=== PATIENT | female | born 1955 | race Caucasian/White ===

== ENCOUNTER 2018-06-09 02:07 | Outpatient (RCR) | payer MEDICAID, SELFPAY ==
[2018-06-09] MEDS: Normal Saline Flush 10 ML SYR IVP (09:30)
[2018-06-09 09:50] LABS: Abs Immature Grans 0.01 k/cumm (0.0-0.09); Absolute Lymphocyte Count 1.89 k/cumm (1.2-3.4); Absolute Monocyte Count 0.77 k/cumm (0.11-0.7); Basophils % 1.7; HCT 31.5 % (36.0-46.0); HGB 9.8 g/dL (12.0-15.5); Immature Grans % 0.2; Lymphocytes % 32.8; Mean Corp. HGB Concentration 31.1 g/dL (32.0-36.0); Mean Corpuscular Hemoglobin 28.2 pg (27.0-33.0); Mean Corpuscular Volume 90.5 fL (80-95); Mean Platelet Volume 8.3 fL (8.0-11.0); Monocytes % 13.3; Platelet Count 334 x1000/uL (130-400); RBC 3.48 m/cumm (4.00-5.20); RBC Distribution Width 22.2 % (11.7-14.6); White Blood Cell Count 5.77 k/cumm (4.4-10.8)
[2018-06-09 10:05] LABS: ALT 21 U/L (12-78); AST 18 U/L (15-37); Albumin 3.1 g/dL (3.4-5.0); Alkaline Phosphatase 163 U/L (46-116); Anion Gap 6.6 mmol/L (3-11); BUN 12 mg/dL (7-18); Bilirubin, Total 0.3 mg/dL (0.2-1.0); CO2 28.4 mmol/L (21.0-32.0); CREATININE 0.56 mg/dL (0.55-1.02); Calcium 8.9 mg/dL (8.5-10.1); Chloride 104 mmol/L (98-107); Glucose 91 mg/dL (70-100); Potassium 4.2 mmol/L (3.5-5.1); Sodium 139 mmol/L (136-145); Total Protein 7.2 g/dL (6.4-8.2)
[2018-06-28] MEDS: Normal Saline Flush 10 ML SYR IVP (13:05)
[2018-06-28 13:25] LABS: Abs Immature Grans 0.01 k/cumm (0.0-0.09); Absolute Eosinophil Count 0.01 k/cumm (0.0-0.7); Absolute Lymphocyte Count 2.07 k/cumm (1.2-3.4); Absolute Monocyte Count 0.72 k/cumm (0.11-0.7); Absolute Neutrophil Count 2.85 k/cumm (1.2-6.7); Basophils % 1.7; Eosinophils % 0.2; HGB 10.1 g/dL (12.0-15.5); Immature Grans % 0.2; Lymphocytes % 35.9; Mean Corp. HGB Concentration 31.6 g/dL (32.0-36.0); Mean Corpuscular Hemoglobin 29.8 pg (27.0-33.0); Mean Corpuscular Volume 94.4 fL (80-95); Mean Platelet Volume 8.7 fL (8.0-11.0); Monocytes % 12.5; Neutrophils % 49.5; Platelet Count 257 x1000/uL (130-400); RBC 3.39 m/cumm (4.00-5.20); RBC Distribution Width 22.8 % (11.7-14.6); White Blood Cell Count 5.76 k/cumm (4.4-10.8)
[2018-06-28 13:52] LABS: ALT 18 U/L (12-78); AST 16 U/L (15-37); Albumin 3.2 g/dL (3.4-5.0); Alkaline Phosphatase 144 U/L (46-116); Anion Gap 8.2 mmol/L (3-11); BUN 12 mg/dL (7-18); Bilirubin, Total 0.3 mg/dL (0.2-1.0); CO2 27.8 mmol/L (21.0-32.0); CREATININE 0.65 mg/dL (0.55-1.02); Calcium 8.5 mg/dL (8.5-10.1); Chloride 106 mmol/L (98-107); Glucose 95 mg/dL (70-100); Potassium 4.1 mmol/L (3.5-5.1); Sodium 142 mmol/L (136-145)
== END 2018-07-08 ==
LOC: INF 06-28 02:07
PROVIDERS: PCP Internal Medicine; Visit Provider Internal Medicine Medical Oncology
DX: C34.91 Malignant neoplasm of unspecified part of right bronchus or lung (principal); Z45.2 Encounter for adjustment and management of vascular access device
CPT/HCPCS: 36591; 80053; 85025

== ENCOUNTER 2018-07-19 01:27 | Outpatient (RCR) | payer MEDICAID, SELFPAY ==
[2018-07-19 09:41] LABS: Absolute Basophil Count 0.07 k/cumm (0.0-0.2); Absolute Lymphocyte Count 1.35 k/cumm (1.2-3.4); Absolute Monocyte Count 0.47 k/cumm (0.11-0.7); Absolute Neutrophil Count 1.94 k/cumm (1.2-6.7); Basophils % 1.8; HCT 31.5 % (36.0-46.0); HGB 9.9 g/dL (12.0-15.5); Lymphocytes % 35.2; Mean Corp. HGB Concentration 31.4 g/dL (32.0-36.0); Mean Corpuscular Hemoglobin 31.2 pg (27.0-33.0); Mean Corpuscular Volume 99.4 fL (80-95); Mean Platelet Volume 9.1 fL (8.0-11.0); Monocytes % 12.3; Neutrophils % 50.7; Platelet Count 232 x1000/uL (130-400); RBC 3.17 m/cumm (4.00-5.20); RBC Distribution Width 22.2 % (11.7-14.6); White Blood Cell Count 3.83 k/cumm (4.4-10.8)
[2018-07-19 09:55] LABS: ALT 18 U/L (12-78); AST 17 U/L (15-37); Alkaline Phosphatase 130 U/L (46-116); Anion Gap 5.1 mmol/L (3-11); BUN 10 mg/dL (7-18); Bilirubin, Total 0.3 mg/dL (0.2-1.0); CO2 29.9 mmol/L (21.0-32.0); Calcium 8.4 mg/dL (8.5-10.1); Chloride 106 mmol/L (98-107); Glucose 93 mg/dL (70-100); Potassium 3.8 mmol/L (3.5-5.1); Sodium 141 mmol/L (136-145); Total Protein 6.7 g/dL (6.4-8.2)
[2018-07-19 09:57] LABS: Anisocytosis 2+; Diff Comment RBC Morph Reviewed; Hypochromasia 1+; Polychromasia Present
== END 2018-08-07 23:59 | disposition home or self-care (01) ==
LOC: INF 01:27
PROVIDERS: PCP Internal Medicine; Visit Provider Internal Medicine Medical Oncology
DX: C34.91 Malignant neoplasm of unspecified part of right bronchus or lung (principal); Z45.2 Encounter for adjustment and management of vascular access device
CPT/HCPCS: 36591; 80053; 85025

== ENCOUNTER 2018-08-20 23:11 | Emergency (ER) | payer MEDICAID, SELFPAY ==
[2018-08-20 23:16] VITALS: BP 128/80; PULSE 85; RESP 16; TEMP 36.5; O2SAT 99
--- NOTE | 2018-08-20 23:45 | W.ED.GENAD ---
Discharge Plan Disposition Patient Disposition: HOME Discharge Details Chief Complaint: Urinary Clinical Impression: Acute UTI, Diarrhea Primary Care Provider: Jeana Bajwa ED Provider: Arun Reddy Home Meds and New Rx's Prescriptions: New sulfamethoxazole-trimethoprim [Bactrim DS] 800-160 mg tablet 1 tab PO BID Qty: 9 RF: 0 Continue acetaminophen [Mapap Extra Strength] 500 MG tablet RF: 0 ascorbic acid (vitamin C) [Vitamin C] 1,000 mg Tablet 1 g PO Q6H RF: 0 ioate-eguakj-nvvbm-latanop(PF) 0.5 %-0.15 %- 2 %-0.005 % Drops 1 drp ophthalmic (eye) DAILY RF: 0 fluconazole [Diflucan] 50 mg Tablet 50 mg PO DAILY RF: 0 cholecalciferol (vitamin D3) [Vitamin D3] 1,000 unit Capsule 1 tab PO DAILY RF: 0 Discontinued ciprofloxacin HCl 500 mg Tablet 500 mg PO BID RF: 0 Discharge Instructions Instructions: Urinary Tract Infection in Women (ED) Additional Instructions: Please drink plenty of clear fluids to sty hydrated. Take antibiotic as prescribed. Follow-up with your doctor. Call for an appointment. Referrals: Jeana Bajwa [Primary Care Provider] - Medical Decision Making 62-year-old female with history of lung cancer on chemotherapy, recently diagnosed with UTI and started on ciprofloxacin 3 days ago, here with continued dysuria, suprapubic tenderness and decreased urination recently with loose stool. Urinalysis reviewed and consistent with UTI Considered PRAVEEN: Labs reviewed and creatinine normal. Considered neutropenia: Labs reviewed and leukocytosis noted. I obtained and reviewed outside hospital records from [facility]: Urine culture 08/18/2018 growing E. coli that is pansensitive. Given persistent symptoms and side effects associated with the ciprofloxacin including loose stool, plan to switch to Bactrim -urine culture from 08/18/2018 demonstrates sensitivity to this. I will check urine culture again today. Patient was instructed to follow-up with her primary care physician. She would prefer to switch to a primary care physician here at [facility]. I will refer to care management to assist in arranging outpatient follow-up. HPI General Mode of arrival: ambulatory. Date/Time Provider Initiated Documentation: 08/20/18 23:45. Limitations to Documentation: no limitations. Information obtained by: patient. HPI Narrative: 62yo f with history of lung cancer on chemotherapy, here with chief complaint of difficulty urinating. Patient notes that over the past week she has had increased urinary frequency, dysuria described as burning, and pressure in her bladder. She has been seen by her primary care physician and started on Diflucan she was also started on ciprofloxacin 500 mg twice daily which she has been taking for the past 3 days. Patient notes she now has had loose stool for the past couple days and has not been urinating as much as usual but continues to have discomfort. Patient denies rash but notes some swelling in her vaginal area. Patient denies fever or flank pain. Related Data Home Medications Medication Instructions Recorded Confirmed acetaminophen [Mapap Extra 04/24/18 Strength] ascorbic acid (vitamin C) [Vitamin 1 g PO Q6H 08/20/18 08/20/18 C] cholecalciferol (vitamin D3) 1 tab PO DAILY 08/20/18 08/20/18 [Vitamin D3] fluconazole [Diflucan] 50 mg PO DAILY 08/20/18 08/20/18 uiwge-ttzjbp-cvyof-latanop(PF) 1 drp OPHTHALMIC (EYE) DAILY 08/20/18 08/20/18 sulfamethoxazole-trimethoprim 1 tab PO BID #9 tab 08/21/18 [Bactrim DS] Previous Rx's Medication Instructions Recorded sulfamethoxazole-trimethoprim 1 tab PO BID #9 tab 08/21/18 [Bactrim DS] Allergies Allergy/AdvReac Type Severity Reaction Status Date / Time Penicillins Allergy Unverified 08/20/18 23:21 General Stated Complaint: Urinary ELIO: 4 Review of Systems Gastrointestinal Denies nausea and Denies vomiting Genitourinary Reports urinary frequency, Reports difficulty voiding and Reports dysuria PFSH Social History Smoking/Tobacco Use Status: Current every day Exam Const General: cooperative and no acute distress HENMT Mouth: moist mucous membranes Eyes Conjunctivae: normal conjunctivae Sclera: normal sclerae Resp Auscultation: clear to auscultation bilaterally, no rales, no rhonchi and no wheezes Cardio Jugular venous pressure: no JVD Rate: regular rate and not tachycardic Rhythm: regular rhythm GI Palpation: soft, not firm, no guarding, no masses, not rigid and tender (suprapubic) External Female Exam: external appearance normal, no erythema, no external swelling, no lesions and other (exam performed with female barge captain melissa present) Neuro General: alert, awake and tone normal Extrem General: no edema Psych Appearance: grossly normal Mental Status: mental status grossly normal Speech and Movement: speech and movement normal Course Vital Signs Temperature 36.5 C 08/20/18 23:16 Pulse 85 08/20/18 23:16 Respiratory Rate 16 08/20/18 23:16 Blood Pressure 128/80 08/20/18 23:16 Pulse Oximetry 99 08/20/18 23:16 Temperature 36.5 C 08/20/18 23:16 Temperature Source Skin 08/20/18 23:16 Pulse 85 08/20/18 23:16 Respiratory Rate 16 08/20/18 23:16 Respiratory Effort Non-Labored 08/20/18 23:19 Blood Pressure 128/80 08/20/18 23:16 Pulse Oximetry 99 08/20/18 23:16 Pain Level 8 08/20/18 23:24
[2018-08-21 00:15] LABS: Absolute Lymphocyte Count 2.07 k/cumm (1.2-3.4); Absolute Neutrophil Count 13.47 k/cumm (1.2-6.7); Basophils % 0.2; Eosinophils % 0.1; HCT 28.9 % (36.0-46.0); HGB 9.4 g/dL (12.0-15.5); Immature Grans % 0.6; Mean Corp. HGB Concentration 32.5 g/dL (32.0-36.0); Mean Corpuscular Hemoglobin 34.3 pg (27.0-33.0); Mean Corpuscular Volume 105.5 fL (80-95); Mean Platelet Volume 8.9 fL (8.0-11.0); Neutrophils % 78.1; Platelet Count 199 x1000/uL (130-400); RBC 2.74 m/cumm (4.00-5.20); RBC Distribution Width 18.7 % (11.7-14.6); White Blood Cell Count 17.25 k/cumm (4.4-10.8)
[2018-08-21 00:16] LABS: Absolute Basophil Count 0.03 k/cumm (0.0-0.2); Absolute Eosinophil Count 0.02 k/cumm (0.0-0.7); Absolute Monocyte Count 1.55 k/cumm (0.11-0.7)
[2018-08-21 00:20] LABS: Anion Gap 9.7 mmol/L (3-11); BUN 14 mg/dL (7-18); CO2 26.3 mmol/L (21.0-32.0); CREATININE 0.78 mg/dL (0.55-1.02); Calcium 8.2 mg/dL (8.5-10.1); Chloride 100 mmol/L (98-107); Glucose 94 mg/dL (70-100); Potassium 3.8 mmol/L (3.5-5.1); Sodium 136 mmol/L (136-145)
[2018-08-21 00:36] LABS: Bilirubin Negative (Negative); Blood Moderate (Negative); Clarity Cloudy; Glucose Negative (Negative); Ketones Negative (Negative); Leukocyte Esterase Trace (Negative); Nitrite Negative (Negative); Specific Gravity 1.015 (1.005-1.025); Urobilinogen 0.2 EU/dL (Up TO 0.2); pH 5.5 (5-8)
[2018-08-21 00:40] LABS: Anisocytosis 1+; Hypochromasia 1+; Macrocytosis 1+
[2018-08-21 00:44] LABS: Bacteria Few HPF (Negative); C & S Indicated? No/Sq. Contamination; Casts Negative LPF (Negative); Crystals Moderate Amorphous HPF (Negative); Epithelial Cells Moderate HPF (Negative); Mucus Negative (Negative); RBC 20-50 (0-2); WBC >50 HPF (0-5)
--- NOTE | 2018-08-21 01:03 | ED.GENADUL_ITS ---
Discharge Plan Disposition Patient Disposition: HOME Discharge Details Chief Complaint: Urinary Clinical Impression: Acute UTI, Diarrhea Primary Care Provider: Jeana Bajaw ED Provider: Arun Reddy Home Meds and New Rx's Prescriptions: New sulfamethoxazole-trimethoprim [Bactrim DS] 800-160 mg tablet 1 tab PO BID Qty: 9 RF: 0 Continue acetaminophen [Mapap Extra Strength] 500 MG tablet RF: 0 ascorbic acid (vitamin C) [Vitamin C] 1,000 mg Tablet 1 g PO Q6H RF: 0 ofgeu-mqmazh-jotue-latanop(PF) 0.5 %-0.15 %- 2 %-0.005 % Drops 1 drp ophthalmic (eye) DAILY RF: 0 fluconazole [Diflucan] 50 mg Tablet 50 mg PO DAILY RF: 0 cholecalciferol (vitamin D3) [Vitamin D3] 1,000 unit Capsule 1 tab PO DAILY RF: 0 Discontinued ciprofloxacin HCl 500 mg Tablet 500 mg PO BID RF: 0 Discharge Instructions Instructions: Urinary Tract Infection in Women (ED) Additional Instructions: Please drink plenty of clear fluids to sty hydrated. Take antibiotic as prescribed. Follow-up with your doctor. Call for an appointment. Referrals: Jeana Bajwa [Primary Care Provider] - Medical Decision Making 62-year-old female with history of lung cancer on chemotherapy, recently diagnosed with UTI and started on ciprofloxacin 3 days ago, here with continued dysuria, suprapubic tenderness and decreased urination recently with loose stool. Urinalysis reviewed and consistent with UTI Considered PRAVEEN: Labs reviewed and creatinine normal. Considered neutropenia: Labs reviewed and leukocytosis noted. I obtained and reviewed outside hospital records from [facility]: Urine culture 08/18/2018 growing E. coli that is pansensitive. Given persistent symptoms and side effects associated with the ciprofloxacin including loose stool, plan to switch to Bactrim -urine culture from 08/18/2018 demonstrates sensitivity to this. I will check urine culture again today. Patient was instructed to follow-up with her primary care physician. She would prefer to switch to a primary care physician here at [facility]. I will refer to care management to assist in arranging outpatient follow-up. HPI General Mode of arrival: ambulatory . Date/Time Provider Initiated Documentation: 08/20/18 23:45 . Limitations to Documentation: no limitations . Information obtained by: patient . HPI Narrative: 62yo f with history of lung cancer on chemotherapy, here with chief complaint of difficulty urinating. Patient notes that over the past week she has had increased urinary frequency, dysuria described as burning, and pressure in her bladder. She has been seen by her primary care physician and started on Diflucan she was also started on ciprofloxacin 500 mg twice daily which she has been taking for the past 3 days. Patient notes she now has had loose stool for the past couple days and has not been urinating as much as usual but continues to have discomfort. Patient denies rash but notes some swelling in her vaginal area. Patient denies fever or flank pain. Related Data Home Medications Medication Instructions Recorded Confirmed acetaminophen [Mapap Extra 04/24/18 Strength] ascorbic acid (vitamin C) [Vitamin 1 g PO Q6H 08/20/18 08/20/18 C] cholecalciferol (vitamin D3) 1 tab PO DAILY 08/20/18 08/20/18 [Vitamin D3] fluconazole [Diflucan] 50 mg PO DAILY 08/20/18 08/20/18 xplcx-erwweb-cqyee-latanop(PF) 1 drp OPHTHALMIC (EYE) DAILY 08/20/18 08/20/18 sulfamethoxazole-trimethoprim 1 tab PO BID #9 tab 08/21/18 [Bactrim DS] Previous Rx's Medication Instructions Recorded sulfamethoxazole-trimethoprim 1 tab PO BID #9 tab 08/21/18 [Bactrim DS] Allergies Allergy/AdvReac Type Severity Reaction Status Date / Time Penicillins Allergy Unverified 08/20/18 23:21 General Stated Complaint: Urinary ELIO: 4 Review of Systems Gastrointestinal Denies nausea and Denies vomiting Genitourinary Reports urinary frequency, Reports difficulty voiding and Reports dysuria PFSH Social History Smoking/Tobacco Use Status: Current every day Exam Const General: cooperative and no acute distress HENMT Mouth: moist mucous membranes Eyes Conjunctivae: normal conjunctivae Sclera: normal sclerae Resp Auscultation: clear to auscultation bilaterally, no rales, no rhonchi and no wheezes Cardio Jugular venous pressure: no JVD Rate: regular rate and not tachycardic Rhythm: regular rhythm GI Palpation: soft, not firm, no guarding, no masses, not rigid and tender ( suprapubic) External Female Exam: external appearance normal, no erythema, no external swelling, no lesions and other (exam performed with female housing inspector melissa present) Neuro General: alert, awake and tone normal Extrem General: no edema Psych Appearance: grossly normal Mental Status: mental status grossly normal Speech and Movement: speech and movement normal Course Vital Signs Temperature 36.5 C 08/20/18 23:16 Pulse 85 08/20/18 23:16 Respiratory Rate 16 08/20/18 23:16 Blood Pressure 128/80 08/20/18 23:16 Pulse Oximetry 99 08/20/18 23:16 Temperature 36.5 C 08/20/18 23:16 Temperature Source Skin 08/20/18 23:16 Pulse 85 08/20/18 23:16 Respiratory Rate 16 08/20/18 23:16 Respiratory Effort Non-Labored 08/20/18 23:19 Blood Pressure 128/80 08/20/18 23:16 Pulse Oximetry 99 08/20/18 23:16 Pain Level 8 08/20/18 23:24
[2018-08-21] MEDS: Sulfameth/Trimeth DS TAB 1 TAB PO (01:25)
--- NOTE | 2018-08-22 10:42 | PDOC.ERCMPRO ---
Care Management Progress Note 08/22-Dr. Hemalatha Reddy requested assistance with Courtney having a local PCP. She currently goes to [facility] and lives in [place]. Called [place] this morning and discussed local providers. [facility] is principal consulting engineer but they are not accepting new patients at this time, long waiting list. So suggested to Courtney that she reach out to [facility].Courtney was receptive to this and will call them to discuss medical records release and to schedule new patient appt. In the interim, explained to Courtney that she would need to continue to go to [facility]. Courtney stated she understood and will call [facility]. Patient has chronic medical problems, IE: lung cancer.
--- NOTE | 2018-08-22 10:45 | CMPROGNOTE_ITS ---
Care Management Progress Note 08/22-Dr. Hemalatha Reddy requested assistance with Courtney having a local PCP. She currently goes to [facility] and lives in [place]. Called [place] this morning and discussed local providers. [facility] is information assistant but they are not accepting new patients at this time, long waiting list. So suggested to Courtney that she reach out to [facility].Courtney was receptive to this and will call them to discuss medical records release and to schedule new patient appt. In the interim, explained to Courtney that she would need to continue to go to [facility]. Courtney stated she understood and will call [facility]. Patient has chronic medical problems, IE: lung cancer.
== END 2018-08-21 01:28 | disposition home or self-care (01) ==
PROVIDERS: Emergency Provider Student in an Organized Health Care Education/Training Program; PCP Internal Medicine
DX: N39.0 Urinary tract infection, site not specified (principal); R19.7 Diarrhea, unspecified; Z79.899 Other long term (current) drug therapy; C34.90 Malignant neoplasm of unspecified part of unspecified bronchus or lung; I10 Essential (primary) hypertension
CPT/HCPCS: 80048; 99283; 81003; 81015; 85025

== ENCOUNTER 2018-08-30 00:55 | Outpatient (RCR) | payer MEDICAID, SELFPAY ==
[2018-08-08] MEDS: Normal Saline Flush 10 ML SYR IVP (07:30)
[2018-08-08 07:59] LABS: Abs Immature Grans 0.01 k/cumm (0.0-0.09); Absolute Basophil Count 0.05 k/cumm (0.0-0.2); Absolute Lymphocyte Count 1.41 k/cumm (1.2-3.4); Absolute Monocyte Count 0.68 k/cumm (0.11-0.7); Absolute Neutrophil Count 2.61 k/cumm (1.2-6.7); Basophils % 1.1; HCT 30.5 % (36.0-46.0); HGB 9.7 g/dL (12.0-15.5); Immature Grans % 0.2; Lymphocytes % 29.6; Mean Corp. HGB Concentration 31.8 g/dL (32.0-36.0); Mean Corpuscular Hemoglobin 33.1 pg (27.0-33.0); Mean Corpuscular Volume 104.1 fL (80-95); Mean Platelet Volume 8.9 fL (8.0-11.0); Monocytes % 14.3; Neutrophils % 54.8; Platelet Count 204 x1000/uL (130-400); RBC 2.93 m/cumm (4.00-5.20); RBC Distribution Width 20.1 % (11.7-14.6); White Blood Cell Count 4.76 k/cumm (4.4-10.8)
[2018-08-08 08:16] LABS: ALT 18 U/L (12-78); AST 17 U/L (15-37); Alkaline Phosphatase 117 U/L (46-116); Anion Gap 5.9 mmol/L (3-11); BUN 15 mg/dL (7-18); Bilirubin, Total 0.3 mg/dL (0.2-1.0); CO2 29.1 mmol/L (21.0-32.0); CREATININE 0.56 mg/dL (0.55-1.02); Calcium 8.5 mg/dL (8.5-10.1); Chloride 107 mmol/L (98-107); Glucose 91 mg/dL (70-100); Potassium 3.7 mmol/L (3.5-5.1); Sodium 142 mmol/L (136-145); Total Protein 6.3 g/dL (6.4-8.2)
[2018-08-30] MEDS: Normal Saline Flush 10 ML SYR IVP (08:30)
[2018-08-30 08:50] LABS: Abs Immature Grans 0.01 k/cumm (0.0-0.09); Absolute Basophil Count 0.03 k/cumm (0.0-0.2); Absolute Lymphocyte Count 1.58 k/cumm (1.2-3.4); Absolute Monocyte Count 0.55 k/cumm (0.11-0.7); Absolute Neutrophil Count 1.69 k/cumm (1.2-6.7); Basophils % 0.8; HCT 29.3 % (36.0-46.0); HGB 9.2 g/dL (12.0-15.5); Immature Grans % 0.3; Lymphocytes % 40.9; Mean Corp. HGB Concentration 31.4 g/dL (32.0-36.0); Mean Corpuscular Hemoglobin 33.7 pg (27.0-33.0); Mean Corpuscular Volume 107.3 fL (80-95); Mean Platelet Volume 8.6 fL (8.0-11.0); Monocytes % 14.2; Neutrophils % 43.8; Platelet Count 146 x1000/uL (130-400); RBC 2.73 m/cumm (4.00-5.20); RBC Distribution Width 19.3 % (11.7-14.6); White Blood Cell Count 3.86 k/cumm (4.4-10.8)
[2018-08-30 09:01] LABS: ALT 18 U/L (12-78); AST 17 U/L (15-37); Albumin 2.9 g/dL (3.4-5.0); Alkaline Phosphatase 99 U/L (46-116); Anion Gap 8.2 mmol/L (3-11); BUN 21 mg/dL (7-18); Bilirubin, Total 0.3 mg/dL (0.2-1.0); CO2 26.8 mmol/L (21.0-32.0); Calcium 8.6 mg/dL (8.5-10.1); Chloride 106 mmol/L (98-107); Glucose 90 mg/dL (70-100); Potassium 3.5 mmol/L (3.5-5.1); Sodium 141 mmol/L (136-145); Total Protein 6.1 g/dL (6.4-8.2)
== END 2018-09-07 23:59 | disposition home or self-care (01) ==
LOC: INF 00:55
PROVIDERS: PCP Internal Medicine; Visit Provider Internal Medicine Medical Oncology
DX: C34.91 Malignant neoplasm of unspecified part of right bronchus or lung (principal); Z45.2 Encounter for adjustment and management of vascular access device
CPT/HCPCS: 36591; 80053; 85025

== ENCOUNTER 2018-09-22 01:40 | Outpatient (RCR) | payer MEDICAID, SELFPAY ==
[2018-09-22] MEDS: Normal Saline Flush 10 ML SYR IVP (08:20)
[2018-09-22 08:37] LABS: Abs Immature Grans 0.01 k/cumm (0.0-0.09); Absolute Basophil Count 0.05 k/cumm (0.0-0.2); Absolute Eosinophil Count 0.01 k/cumm (0.0-0.7); Absolute Lymphocyte Count 2.42 k/cumm (1.2-3.4); Absolute Monocyte Count 0.84 k/cumm (0.11-0.7); Absolute Neutrophil Count 2.81 k/cumm (1.2-6.7); Basophils % 0.8; Eosinophils % 0.2; HCT 33.7 % (36.0-46.0); HGB 10.6 g/dL (12.0-15.5); Immature Grans % 0.2; Lymphocytes % 39.4; Mean Corp. HGB Concentration 31.5 g/dL (32.0-36.0); Mean Corpuscular Volume 111.2 fL (80-95); Mean Platelet Volume 8.9 fL (8.0-11.0); Monocytes % 13.7; Neutrophils % 45.7; Platelet Count 153 x1000/uL (130-400); RBC 3.03 m/cumm (4.00-5.20); RBC Distribution Width 17.7 % (11.7-14.6); White Blood Cell Count 6.14 k/cumm (4.4-10.8)
[2018-09-22 08:53] LABS: ALT 35 U/L (12-78); AST 25 U/L (15-37); Albumin 3.1 g/dL (3.4-5.0); Alkaline Phosphatase 121 U/L (46-116); Anion Gap 7.5 mmol/L (3-11); BUN 20 mg/dL (7-18); Bilirubin, Total 0.4 mg/dL (0.2-1.0); CO2 29.5 mmol/L (21.0-32.0); CREATININE 0.57 mg/dL (0.55-1.02); Calcium 8.4 mg/dL (8.5-10.1); Chloride 103 mmol/L (98-107); Glucose 86 mg/dL (70-100); Potassium 3.4 mmol/L (3.5-5.1); Sodium 140 mmol/L (136-145); Total Protein 6.5 g/dL (6.4-8.2)
== END 2018-10-07 23:59 | disposition home or self-care (01) ==
LOC: INF 01:40
PROVIDERS: PCP Internal Medicine; Visit Provider Internal Medicine Medical Oncology
DX: C34.91 Malignant neoplasm of unspecified part of right bronchus or lung (principal); Z45.2 Encounter for adjustment and management of vascular access device
CPT/HCPCS: 36591; 80053; 85025

== ENCOUNTER 2018-10-20 09:23 | Outpatient (RCR) | payer MEDICAID, SELFPAY ==
[2018-10-20] MEDS: Normal Saline Flush 10 ML SYR IVP (09:49)
[2018-10-20 09:51] LABS: Absolute Basophil Count 0.11 k/cumm (0.0-0.2); Absolute Eosinophil Count 0.31 k/cumm (0.0-0.7); Absolute Lymphocyte Count 1.76 k/cumm (1.2-3.4); Absolute Monocyte Count 0.55 k/cumm (0.11-0.7); Absolute Neutrophil Count 3.24 k/cumm (1.2-6.7); Basophils % 1.8; Eosinophils % 5.2; HCT 35.5 % (36.0-46.0); HGB 11.3 g/dL (12.0-15.5); Lymphocytes % 29.5; Mean Corp. HGB Concentration 31.8 g/dL (32.0-36.0); Mean Corpuscular Hemoglobin 35.1 pg (27.0-33.0); Mean Corpuscular Volume 110.2 fL (80-95); Mean Platelet Volume 8.9 fL (8.0-11.0); Monocytes % 9.2; Neutrophils % 54.3; Platelet Count 291 x1000/uL (130-400); RBC 3.22 m/cumm (4.00-5.20); RBC Distribution Width 13.5 % (11.7-14.6); White Blood Cell Count 5.97 k/cumm (4.4-10.8)
[2018-10-20 10:09] LABS: ALT 16 U/L (12-78); AST 16 U/L (15-37); Albumin 3.2 g/dL (3.4-5.0); Alkaline Phosphatase 144 U/L (46-116); Anion Gap 9.1 mmol/L (3-11); BUN 13 mg/dL (7-18); Bilirubin, Total 0.3 mg/dL (0.2-1.0); CO2 30.9 mmol/L (21.0-32.0); CREATININE 0.54 mg/dL (0.55-1.02); Chloride 102 mmol/L (98-107); Glucose 97 mg/dL (70-100); Potassium 3.6 mmol/L (3.5-5.1); Sodium 142 mmol/L (136-145); Total Protein 6.9 g/dL (6.4-8.2)
== END 2018-11-07 23:59 | disposition home or self-care (01) ==
LOC: INF 09:23
PROVIDERS: PCP Internal Medicine; Visit Provider Internal Medicine Hematology & Oncology
DX: C34.91 Malignant neoplasm of unspecified part of right bronchus or lung (principal); Z45.2 Encounter for adjustment and management of vascular access device
CPT/HCPCS: 36591; 80053; 85025

== ENCOUNTER 2018-11-01 15:45 | Emergency (ER) | payer MEDICAID, SELFPAY ==
[2018-11-01 15:48] VITALS: BP 142/93; PULSE 91; RESP 16; TEMP 36.7; O2SAT 96
--- NOTE | 2018-11-01 16:19 | W.ED.GENAD ---
Discharge Plan Disposition Patient Disposition: HOME Condition: Fair Discharge Details Chief Complaint: Nk/Back Pain Clinical Impression: Strain of cervical portion of left trapezius muscle Primary Care Provider: Jeana Bajwa ED Provider: Amy Mera Home Meds and New Rx's Prescriptions: New cyclobenzaprine 10 mg tablet 10 mg PO TID PRN (Reason: muscle spasm) Qty: 10 RF: 0 Continued acetaminophen [Mapap Extra Strength] 500 MG tablet 2 tab PO PRNRF: 0 ascorbic acid (vitamin C) [Vitamin C] 1,000 mg Tablet 1 g PO Q6H RF: 0 mowce-vqulml-pzxin-latanop(PF) 0.5 %-0.15 %- 2 %-0.005 % Drops 1 drp ophthalmic (eye) DAILY RF: 0 cholecalciferol (vitamin D3) [Vitamin D3] 1,000 unit Capsule 1 tab PO DAILY RF: 0 Discharge Instructions Instructions: Acute Neck Pain (ED) Additional Instructions: Encourage hydration. Encouarge gentle range of motion as discussed. Tylenol as needed for discomfort. MAy try over the counter patches such as Salonpas or Lidoderm patches for discomfort. Heat or ice to affected area. Flexeril as prescribed to help with muscle spasm. If you develop weakness, altered sensation, rash, fevers or other new/worsening symptoms please seek care urgnelty once again. workforce management coordinator will call you regarding follow up with primary care. Stand Alone Forms: Physical Therapy Referral Discharge Data Discharge Date/Time-TO BE ENTERED AT DEPARTURE: 11/01/18 17:00 Medical Decision Making Patient is a 62-year-old female currently undergoing chemotherapy for adrenal cancer presenting today with chief complaint of left-sided neck pain. She reports that pain began insidiously, upon awakening, presently 3 days ago. Since that time, neck pain is increased as had the stiffness and her neck. She is very limited range of motion at this time. 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 Has not noted any weakness. No change in urinary or bowel habits. Patient has had a mass associated with trauma removed from the midline of the cervical spine several years ago. Denies any bony abnormality at that time. On exam, she has no midline tenderness. Pain is lateral left side of the neck radiating down towards the left shoulder consistent with trapezius discomfort. She does feel tight over this area. No skin discoloration is noted. Full range of motion and strength in the upper extremities. Range of motion is very limited. No rash, no midline tenderness, patient is nontoxic. Afebrile. Patient has been trying Tylenol, heat or ice to affected area with no improvement. Patient reports she is unable to take anti-inflammatory secondary to the ophthalmic treatment she received daily. I encouraged gentle range of motion. Will apply Lidoderm patch and give Flexeril to help with muscle spasm. Discussed this plan of the patient who is in agreement Patient given Lidoderm and Flexeril. About 15 minutes after receiving meds, she is requesting discharge. Does not drive. Requesting local PCP, I have asked our child care attendant school to help facilitate f/u. Referral for PT given. She reports she is feeling improvement, although slightly. Has been working on ROM as instructed. Encourage hydration. Advised to continue with Tylenol as needed for discomfort. We discussed topical options to help with discomfort. She was given strict return precautions. Advise follow-up with primary care in the next 2 weeks for reevaluation. All of her questions and concerns were addressed and she is in agreement this HPI General Mode of arrival: ambulatory. Date/Time Provider Initiated Documentation: 11/01/18 16:00. Limitations to Documentation: no limitations. Information obtained by: patient and family. History of Present Illness 62 year old F presents to the emergency department with the chief complaint of left sided neck pain, described as moderate, with intensity rated at 8. Quality is described as aching, and is localized to the neck. Patient reports no radiation. Patient started experiencing this day(s) (3) and it has been constant. No relieving factors improve symptom(s), No exacerbating factors reported . Patient notes denies chest pain, cough, fever/chills, headaches, nausea/vomiting, rash, shortness of breath and syncope. Patient did receive the following treatments prior to arrival, other (Tylenol) Related Data Home Medications Medication Instructions Recorded Confirmed acetaminophen [Mapap Extra 2 tab PO PRN 04/24/18 Strength] ascorbic acid (vitamin C) [Vitamin 1 g PO Q6H 08/20/18 11/01/18 C] cholecalciferol (vitamin D3) 1 tab PO DAILY 08/20/18 11/01/18 [Vitamin D3] xyurv-tnyodu-prmli-latanop(PF) 1 drp OPHTHALMIC (EYE) DAILY 08/20/18 11/01/18 cyclobenzaprine 10 mg PO TID PRN #10 tab 11/01/18 Previous Rx's Medication Instructions Recorded cyclobenzaprine 10 mg PO TID PRN #10 tab 11/01/18 Allergies Allergy/AdvReac Type Severity Reaction Status Date / Time Penicillins Allergy Unverified 11/01/18 15:52 General Stated Complaint: Nk/Back Pain ELIO: 4 Review of Systems Constitutional Reports as per HPI, Denies chills, Denies fever(s), Denies headache(s) and Denies weakness ENT Denies headache(s) Cardiovascular Reports as per HPI Respiratory Reports as per HPI and Denies cough Musculoskeletal Reports as per HPI and Denies tingling Integumentary/Breasts Reports as per HPI, Denies rash and Denies wounds Neurologic Denies headache(s), Denies tingling and Denies weakness [facility] Social History Smoking/Tobacco Use Status: Current every day Exam Const General: cooperative, healthy appearing, comfortable, no acute distress, well developed and well groomed Nutritional Appearance: average body habitus and well nourished Orientation: alert and awake [facility] Head: normal to inspection, normocephalic and atraumatic Ears: hearing grossly normal bilaterally Face and sinus: normal facial exam and face symmetric Neck Neck: normal visual inspection, limited ROM (limited in all ledbetter), no lymphadenopathy, trachea midline and supple Resp Effort & Inspection: normal respiratory effort, able to speak in complete sentences and no respiratory distress Cardio Rate: regular rate Rhythm: regular rhythm Back/Spine/Pelvis Cervical Spine: normal cervical lordosis, No cervical ROM normal, No loss of normal cervical lordosis, cervical muscular tenderness (lateral left side of neck extending toward left shoulder), scars present (has horizontal scar midline posterior neck with area of focal swelling), No cervical spinal tenderness and No step off deformity Thoracic/Lumbar Spine: thoracic and lumbar spine normal to inspection Skin General skin exam: no rashes or lesions noted Lesions: no lesions Rashes: no rashes Trauma: no lacerations or abrasions Neuro General: alert and awake Cognition: normal cognition Speech: speech normal Gait: normal gait Motor: muscle tone normal throughout, strength 5/5 throughout, no pronator drift and no movement abnormalities noted Sensory Exam: no sensory deficits noted Extrem General: normal to inspection, full ROM, normal capillary refill and no joint enlargement Psych Appearance: grossly normal and well kempt Mental Status: mental status grossly normal Speech and Movement: speech and movement normal Course Vital Signs Temperature 36.7 C 11/01/18 15:48 Pulse 91 H 11/01/18 15:48 Respiratory Rate 1 L 11/01/18 15:48 Blood Pressure 142/93 H 11/01/18 15:48 Pulse Oximetry 96 11/01/18 15:48 Temperature 36.7 C 11/01/18 15:48 Temperature Source Skin 11/01/18 15:48 Pulse 91 H 11/01/18 15:48 Respiratory Rate 1 L 11/01/18 15:48 Respiratory Effort Non-Labored 11/01/18 15:50 Blood Pressure 142/93 H 11/01/18 15:48 Pulse Oximetry 96 11/01/18 15:48 Pain Level 9 11/01/18 15:48
--- NOTE | 2018-11-01 16:22 | ED.GENADUL_ITS ---
Discharge Plan Disposition Patient Disposition: HOME Condition: Fair Discharge Details Chief Complaint: Nk/Back Pain Clinical Impression: Strain of cervical portion of left trapezius muscle Primary Care Provider: Jeana Bajwa ED Provider: Amy Mera Home Meds and New Rx's Prescriptions: New cyclobenzaprine 10 mg tablet 10 mg PO TID PRN (Reason: muscle spasm) Qty: 10 RF: 0 Continued acetaminophen [Mapap Extra Strength] 500 MG tablet 2 tab PO PRNRF: 0 ascorbic acid (vitamin C) [Vitamin C] 1,000 mg Tablet 1 g PO Q6H RF: 0 qjpkt-mxzsto-abmxt-latanop(PF) 0.5 %-0.15 %- 2 %-0.005 % Drops 1 drp ophthalmic (eye) DAILY RF: 0 cholecalciferol (vitamin D3) [Vitamin D3] 1,000 unit Capsule 1 tab PO DAILY RF: 0 Discharge Instructions Instructions: Acute Neck Pain (ED) Additional Instructions: Encourage hydration. Encouarge gentle range of motion as discussed. Tylenol as needed for discomfort. MAy try over the counter patches such as Salonpas or Lidoderm patches for discomfort. Heat or ice to affected area. Flexeril as prescribed to help with muscle spasm. If you develop weakness, altered sensation, rash, fevers or other new/worsening symptoms please seek care urgnelty once again. credentialing coordinator will call you regarding follow up with primary care. Stand Alone Forms: Physical Therapy Referral Discharge Data Discharge Date/Time-TO BE ENTERED AT DEPARTURE: 11/01/18 17:00 Medical Decision Making Patient is a 62-year-old female currently undergoing chemotherapy for adrenal cancer presenting today with chief complaint of left-sided neck pain. She reports that pain began insidiously, upon awakening, presently 3 days ago. Since that time, neck pain is increased as had the stiffness and her neck. She is very limited range of motion at this time. 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 Has not noted any weakness. No change in urinary or bowel habits. Patient has had a mass associated with trauma removed from the midline of the cervical spine several years ago. Denies any bony abnormality at that time. On exam, she has no midline tenderness. Pain is lateral left side of the neck radiating down towards the left shoulder consistent with trapezius discomfort. She does feel tight over this area. No skin discoloration is noted. Full range of motion and strength in the upper extremities. Range of motion is very limited. No rash, no midline tenderness, patient is nontoxic. Afebrile. Patient has been trying Tylenol, heat or ice to affected area with no improvement. Patient reports she is unable to take anti-inflammatory secondary to the ophthalmic treatment she received daily. I encouraged gentle range of motion. Will apply Lidoderm patch and give Flexeril to help with muscle spasm. Discussed this plan of the patient who is in agreement Patient given Lidoderm and Flexeril. About 15 minutes after receiving meds, she is requesting discharge. Does not drive. Requesting local PCP, I have asked our health care analyst to help facilitate f/u. Referral for PT given. She reports she is feeling improvement, although slightly. Has been working on ROM as instructed. Encourage hydration. Advised to continue with Tylenol as needed for discomfort. We discussed topical options to help with discomfort. She was given strict return precautions. Advise follow-up with primary care in the next 2 weeks for reevaluation. All of her questions and concerns were addressed and she is in agreement this HPI General Mode of arrival: ambulatory . Date/Time Provider Initiated Documentation: 11/01/18 16:00 . Limitations to Documentation: no limitations . Information obtained by: patient and family . History of Present Illness 62 year old F presents to the emergency department with the chief complaint of left sided neck pain, described as moderate, with intensity rated at 8. Quality is described as aching, and is localized to the neck. Patient reports no radiation. Patient started experiencing this day(s) (3) and it has been constant. No relieving factors improve symptom(s), No exacerbating factors reported . Patient notes denies chest pain, cough, fever/chills, headaches, nausea/vomiting, rash, shortness of breath and syncope. Patient did receive the following treatments prior to arrival, other (Tylenol) Related Data Home Medications Medication Instructions Recorded Confirmed acetaminophen [Mapap Extra 2 tab PO PRN 04/24/18 Strength] ascorbic acid (vitamin C) [Vitamin 1 g PO Q6H 08/20/18 11/01/18 C] cholecalciferol (vitamin D3) 1 tab PO DAILY 08/20/18 11/01/18 [Vitamin D3] ajyag-yyuoaz-ahqqu-latanop(PF) 1 drp OPHTHALMIC (EYE) DAILY 08/20/18 11/01/18 cyclobenzaprine 10 mg PO TID PRN #10 tab 11/01/18 Previous Rx's Medication Instructions Recorded cyclobenzaprine 10 mg PO TID PRN #10 tab 11/01/18 Allergies Allergy/AdvReac Type Severity Reaction Status Date / Time Penicillins Allergy Unverified 11/01/18 15:52 General Stated Complaint: Nk/Back Pain ELIO: 4 Review of Systems Constitutional Reports as per HPI, Denies chills, Denies fever(s), Denies headache(s) and Denies weakness ENT Denies headache(s) Cardiovascular Reports as per HPI Respiratory Reports as per HPI and Denies cough Musculoskeletal Reports as per HPI and Denies tingling Integumentary/Breasts Reports as per HPI, Denies rash and Denies wounds Neurologic Denies headache(s), Denies tingling and Denies weakness [facility] Social History Smoking/Tobacco Use Status: Current every day Exam Const General: cooperative, healthy appearing, comfortable, no acute distress, well developed and well groomed Nutritional Appearance: average body habitus and well nourished Orientation: alert and awake [facility] Head: normal to inspection, normocephalic and atraumatic Ears: hearing grossly normal bilaterally Face and sinus: normal facial exam and face symmetric Neck Neck: normal visual inspection, limited ROM (limited in all lebdetter), no lymphadenopathy, trachea midline and supple Resp Effort & Inspection: normal respiratory effort, able to speak in complete sentences and no respiratory distress Cardio Rate: regular rate Rhythm: regular rhythm Back/Spine/Pelvis Cervical Spine: normal cervical lordosis, No cervical ROM normal, No loss of normal cervical lordosis, cervical muscular tenderness (lateral left side of neck extending toward left shoulder), scars present (has horizontal scar midline posterior neck with area of focal swelling), No cervical spinal tenderness and No step off deformity Thoracic/Lumbar Spine: thoracic and lumbar spine normal to inspection Skin General skin exam: no rashes or lesions noted Lesions: no lesions Rashes: no rashes Trauma: no lacerations or abrasions Neuro General: alert and awake Cognition: normal cognition Speech: speech normal Gait: normal gait Motor: muscle tone normal throughout, strength 5/5 throughout, no pronator drift and no movement abnormalities noted Sensory Exam: no sensory deficits noted Extrem General: normal to inspection, full ROM, normal capillary refill and no joint enlargement Psych Appearance: grossly normal and well kempt Mental Status: mental status grossly normal Speech and Movement: speech and movement normal Course Vital Signs Temperature 36.7 C 11/01/18 15:48 Pulse 91 H 11/01/18 15:48 Respiratory Rate 1 L 11/01/18 15:48 Blood Pressure 142/93 H 11/01/18 15:48 Pulse Oximetry 96 11/01/18 15:48 Temperature 36.7 C 11/01/18 15:48 Temperature Source Skin 11/01/18 15:48 Pulse 91 H 11/01/18 15:48 Respiratory Rate 1 L 11/01/18 15:48 Respiratory Effort Non-Labored 11/01/18 15:50 Blood Pressure 142/93 H 11/01/18 15:48 Pulse Oximetry 96 11/01/18 15:48 Pain Level 9 11/01/18 15:48
[2018-11-01] MEDS: Cyclobenzaprine 10 MG TAB PO (16:26)
[2018-11-01] MEDS: Lidocaine 5% Patch 1 PATCH TP ×2 (16:27→16:59)
[2018-11-01] MEDS: Cyclobenzaprine 10 MG TAB 30 MG PO (16:59)
--- NOTE | 2018-11-01 16:59 | NUR.NOTE ---
Pt. given 2 flexeril tabs for tonight and tomorrow.
== END 2018-11-01 17:00 | disposition home or self-care (01) ==
PROVIDERS: Emergency Provider Physician Assistant; PCP Internal Medicine
DX: S16.1XXA Strain of muscle, fascia and tendon at neck level, initial encounter (principal); X58.XXXA Exposure to other specified factors, initial encounter; C74.90 Malignant neoplasm of unspecified part of unspecified adrenal gland; Z79.899 Other long term (current) drug therapy
CPT/HCPCS: 99283

== ENCOUNTER 2019-01-26 02:14 | Outpatient (RCR) | payer MEDICAID, SELFPAY | END 2019-02-05 23:59 | disposition home or self-care (01) | LOC: INF 02:14 | PROVIDERS: PCP Internal Medicine; Visit Provider Nurse Practitioner Family | DX: R69 Illness, unspecified (principal) ==